=== PATIENT | female | born 1960 | race Caucasian/White ===

== ENCOUNTER → 2017-01-09 | Outpatient (CLI) | payer OTHER ==
[~2017-01-09] MED LIST: AMLODIPINE BESYL5 MG PO; ASPIRIN ENTERI325 M1; ASPIRIN PO; CEFTIN PO; CHANTIX PO; DOXYCYCLINE PO; EXCEDRIN MIGRA1 EACH PO; EXCEDRIN MIGRAI1 TA1 PO; GABAPENTIN600 MG PO; LIPITOR80 MG PO; LISINOPRIL PO; LISINOPRIL10 MG PO; MOBIC PO; NORVASC PO; PROTONIX PO; REGLAN PO; TRAMADOL HCL50 M1 PO; VOLTAREN75 MG; VOLTAREN75 MG PO; ZANTAC PO; ZESTRIL10 MG PO; ZOCOR PO
--- NOTE | ~2017-01-09 | CT2 ---
[facility] A Service of [facility] RADIOLOGY TEXT RESULTS PATIENT: SHOAIB MIMS [facility] 62 UN[facility] #: [id number] AGE: [address]: Alec Hopkins MD SEX: F ORDER DR: [id number] [facility] [address] [place], [place] [address] [id number] O MR#: [id number] Acc #: [id number] NAME: SHOAIB MIMS : 1960 SEX: F STUDY DATE/TIME: 01/09/2017 15:10 UNIT: [facility] ROOM: STUDY DESCRIPTION: CT Abd and Pelv W Cont Attending Physician: Alec Hopkins M.D. Referring Physician: Alec Hopkins M.D. Ordering Physician: Alec Hopkins M.D. Primary Care Physician: Alec Hopkins M.D. MEDICAL IMAGING REPORT This report is preliminary unless electronic signature is present EXAM CT of the abdomen and pelvis with IV contrast media dated 01/09/2017 COMPARISON 02/23/2012 HISTORY Abdominal pain and elevated liver enzymes. Pain in epigastrium for years with nausea. TECHNIQUE Transaxial imaging of the abdomen and pelvis was performed with IV contrast and compared to a previous study of 02/23/2012. This CT exam was performed with one or more of the following radiation dose reduction techniques: automatic control, adjustment of mA and/or kV according to patient size, and iterative reconstruction. FINDINGS Scans through the lung bases show a small nodule in the right lower lobe adjacent to the pleura measuring approximately 7 mm in diameter. This area is not included on the patient's previous scan. It is present dating back to 2008 on a prior scan. A second nodular density seen along the pleura in the left base it also is present on the old study. There is diffuse hepatic steatosis. This is more pronounced than on previous exams. The spleen is normal. Gallbladder is absent. Pancreas appears normal. Adrenal glands are normal. The left kidney is normal. There is a large calcified stone measuring 2.2 cm in the anterior aspect of the right kidney. It is present on old studies dating to 2011 and has increased in size since that time. Atherosclerotic calcifications are present in the aorta and in the left renal artery. No dilated or thickened loops of bowel are identified. Scans were continued into the pelvis showing diverticulosis. There is no indication of diverticulitis. [facility] A Service of [facility] RADIOLOGY TEXT RESULTS PATIENT: SHOAIB MIMS LOCATION: [facility] : 62 UNIT #: [id number] AGE: [address]: Alec Hopkins MD SEX: F ORDER DR: Uterus appears unremarkable. There are no adnexal masses or fluid collections. CONCLUSION 1. Bilateral lower lobe pulmonary nodules which appear to be present dating back to old studies of 2008 and likely have not changed although they are certainly much better seen on this scan. 2. Interim development of diffuse hepatic steatosis without focal mass. 3. Postop changes of prior cholecystectomy. 4. Large calculus and a lower pole infundibulum measuring 2.2 cm within the right kidney. 5. Diverticulosis but no evidence of diverticulitis. Dictated by... Henri Sullivan M.D. THIS IS AN ELECTRONICALLY VERIFIED REPORT Henri Sullivan M.D. at 01/11/2017 12:00 PM WALT/malathi TD: 01/09/2017 17:41 JOB #: [id number] MEDICAL IMAGING REPORT Page 1 of 1 COPY
== END | disposition home or self-care (01) ==
LOC: CCAT 12:56
DX: R10.9 Unspecified abdominal pain (principal); R11.0 Nausea; R79.89 Other specified abnormal findings of blood chemistry; R91.8 Other nonspecific abnormal finding of lung field; K76.0 Fatty (change of) liver, not elsewhere classified; K57.90 Diverticulosis of intestine, part unspecified, without perforation or abscess without bleeding; N20.0 Calculus of kidney; Z90.49 Acquired absence of other specified parts of digestive tract
CPT/HCPCS: 74177; Q9967

== ENCOUNTER → 2017-01-18 | Outpatient (CLI) | payer OTHER ==
--- NOTE | ~2017-01-18 | MY11 ---
[facility] A Service of [facility] RADIOLOGY TEXT RESULTS PATIENT: SHOAIB MIMS LOCATION: [facility] : 62 UNIT #: [id number] AGE: [address]: Alec Hopkins MD SEX: F ORDER DR: [id number] [facility] [address] [place], [place] [address] [id number] O MR#: [id number] Acc #: [id number] NAME: SHOAIB MIMS : 1960 SEX: F STUDY DATE/TIME: 01/18/2017 16:31 UNIT: [facility] ROOM: STUDY DESCRIPTION: MY Mammogram Screening Dig Dino Attending Physician: Alec Hopkins M.D. Referring Physician: Alec Hopkins M.D. Ordering Physician: Alec Hopkins M.D. Primary Care Physician: Alec Hopkins M.D. MEDICAL IMAGING REPORT This report is preliminary unless electronic signature is present EXAM Digital screening mammogram, 01/18/2017 HISTORY 56-year-old woman no risk elevation. Annual screening. COMPARISON [facility] date 02/23/2012. FINDINGS Digital imaging of each breast was completed utilizing screening protocol. Review includes FDA-approved CAD device. The breast parenchyma is predominantly fatty replaced. Mild fibroglandular dominance anterior third right breast is stable. There is no interval occurring mass. There are no suspicious microcalcifications and no architectural deformity. IMPRESSION Negative mammogram. Annual screening recommended. Patients over the age of 40 are entered into a reminder system with target due date for the next mammogram. A result letter will also be sent to the patient. BIRADS: 1 Negative Dictated by... Les Sheets M.D. THIS IS AN ELECTRONICALLY VERIFIED REPORT Les Sheets M.D. at 01/22/2017 3:14 PM [facility] A Service of [facility] RADIOLOGY TEXT RESULTS PATIENT: SHOAIB MIMS LOCATION: [facility] : 62 UNIT #: [id number] AGE: [address]: Alec Hopkins MD SEX: F ORDER DR: TD: 01/22/2017 12:56 JOB #: [id number] MEDICAL IMAGING REPORT Page 1 of 1 COPY
== END | disposition home or self-care (01) ==
LOC: CWCC 16:06
DX: Z12.31 Encounter for screening mammogram for malignant neoplasm of breast (principal)
CPT/HCPCS: G0202